=== PATIENT | male | born 1965 ===

== ENCOUNTER 2016-08-24 15:52 | Outpatient (CLI) | payer BC ==
--- NOTE | 2016-08-24 16:22 | Diagnostic Imaging Report ---
Indication: Pain Comparison: None Findings: 3 views of the left foot were obtained. No acute fractures, malalignment, erosions or periostitis are identified. Bone mineralization is within normal limits. Soft tissues are unremarkable. Impression: No acute findings
== END 2016-08-24 17:52 | disposition home or self-care (01) ==
LOC: RAD 15:52
DX: M25.572 Pain in left ankle and joints of left foot (principal)